=== PATIENT | female | born 1975 | race Caucasian/White ===

== ENCOUNTER → 2019-05-20 12:42 | Outpatient (BNVA) | payer OTHER, SELFPAY | PROVIDERS: Family Provider Nurse Practitioner Family; PCP Family Medicine; Visit Provider Psychiatry & Neurology Psychiatry | DX: G47.419 Narcolepsy without cataplexy (principal); F34.0 Cyclothymic disorder; S06.9X9S Unspecified intracranial injury with loss of consciousness of unspecified duration, sequela; G31.84 Mild cognitive impairment of uncertain or unknown etiology | CPT/HCPCS: 99213 ==

== ENCOUNTER → 2019-07-28 07:32 | Outpatient (BNVA) | payer OTHER, SELFPAY | PROVIDERS: Family Provider Nurse Practitioner Family; PCP Family Medicine; Visit Provider Psychiatry & Neurology Psychiatry | DX: F34.0 Cyclothymic disorder (principal); G47.419 Narcolepsy without cataplexy; S06.9X9S Unspecified intracranial injury with loss of consciousness of unspecified duration, sequela; G31.84 Mild cognitive impairment of uncertain or unknown etiology | CPT/HCPCS: 99212 ==

== ENCOUNTER → 2019-09-01 07:28 | Outpatient (BNVA) | payer OTHER, SELFPAY | PROVIDERS: Family Provider Nurse Practitioner Family; PCP Family Medicine; Visit Provider Psychiatry & Neurology Psychiatry | DX: F34.0 Cyclothymic disorder (principal); G47.419 Narcolepsy without cataplexy; S06.9X9S Unspecified intracranial injury with loss of consciousness of unspecified duration, sequela; G31.84 Mild cognitive impairment of uncertain or unknown etiology; F32.9 Major depressive disorder, single episode, unspecified | CPT/HCPCS: 99213 ==

== ENCOUNTER → 2019-10-27 09:36 | Outpatient (BNVA) | payer OTHER, SELFPAY | PROVIDERS: Family Provider Nurse Practitioner Family; PCP Family Medicine; Visit Provider Psychiatry & Neurology Psychiatry | DX: G47.419 Narcolepsy without cataplexy (principal); F34.0 Cyclothymic disorder; S06.9X9S Unspecified intracranial injury with loss of consciousness of unspecified duration, sequela; G31.84 Mild cognitive impairment of uncertain or unknown etiology | CPT/HCPCS: 99213 ==

== ENCOUNTER → 2020-01-12 07:51 | Outpatient (BNVA) | payer OTHER, SELFPAY | PROVIDERS: Family Provider Nurse Practitioner Family; PCP Family Medicine; Visit Provider Psychiatry & Neurology Psychiatry | DX: F34.0 Cyclothymic disorder (principal); G47.419 Narcolepsy without cataplexy; S06.9X9S Unspecified intracranial injury with loss of consciousness of unspecified duration, sequela; G31.84 Mild cognitive impairment of uncertain or unknown etiology | CPT/HCPCS: 99213 ==

== ENCOUNTER → 2020-03-21 07:31 | Outpatient (BNVA) | payer OTHER, SELFPAY | PROVIDERS: Family Provider Nurse Practitioner Family; PCP Family Medicine; Visit Provider Psychiatry & Neurology Psychiatry | DX: F34.0 Cyclothymic disorder (principal); Z79.899 Other long term (current) drug therapy; G47.419 Narcolepsy without cataplexy; S06.9X9S Unspecified intracranial injury with loss of consciousness of unspecified duration, sequela; G31.84 Mild cognitive impairment of uncertain or unknown etiology | CPT/HCPCS: 99213 ==

== ENCOUNTER → 2020-06-28 14:05 | Outpatient (BNVA) | payer OTHER, SELFPAY | PROVIDERS: Family Provider Nurse Practitioner Family; PCP Family Medicine; Visit Provider Psychiatry & Neurology Psychiatry | DX: F34.0 Cyclothymic disorder (principal); G31.84 Mild cognitive impairment of uncertain or unknown etiology; G47.419 Narcolepsy without cataplexy; Z79.899 Other long term (current) drug therapy; S06.9X9S Unspecified intracranial injury with loss of consciousness of unspecified duration, sequela | CPT/HCPCS: 84295; 99214 ==

== ENCOUNTER → 2020-07-17 10:31 | Outpatient (BNVA) | payer OTHER, SELFPAY | PROVIDERS: Family Provider Nurse Practitioner Family; PCP Family Medicine; Visit Provider Nurse Practitioner Family | DX: R07.9 Chest pain, unspecified (principal); R53.83 Other fatigue | CPT/HCPCS: 80053; 80061; 82306; 82607; 83735; 84443; 85025 ==

== ENCOUNTER → 2020-08-30 07:44 | Outpatient (BNVA) | payer OTHER, SELFPAY | PROVIDERS: Family Provider Nurse Practitioner Family; PCP Family Medicine; Visit Provider Psychiatry & Neurology Psychiatry | DX: F34.0 Cyclothymic disorder (principal); S06.9X9S Unspecified intracranial injury with loss of consciousness of unspecified duration, sequela; G31.84 Mild cognitive impairment of uncertain or unknown etiology; G47.419 Narcolepsy without cataplexy; G47.33 Obstructive sleep apnea (adult) (pediatric); R53.83 Other fatigue | CPT/HCPCS: 99214 ==

== ENCOUNTER → 2020-11-22 07:17 | Outpatient (BNVA) | payer OTHER, SELFPAY | PROVIDERS: PCP Nurse Practitioner Family; Visit Provider Psychiatry & Neurology Psychiatry | DX: F34.0 Cyclothymic disorder (principal); G47.419 Narcolepsy without cataplexy; S06.9X9S Unspecified intracranial injury with loss of consciousness of unspecified duration, sequela; G31.84 Mild cognitive impairment of uncertain or unknown etiology; G47.33 Obstructive sleep apnea (adult) (pediatric) | CPT/HCPCS: 99214 ==

== ENCOUNTER → 2021-02-21 08:11 | Outpatient (BNVA) | payer OTHER, SELFPAY | PROVIDERS: PCP Nurse Practitioner Family; Visit Provider Psychiatry & Neurology Psychiatry | DX: F34.0 Cyclothymic disorder (principal); G47.419 Narcolepsy without cataplexy; S06.9X9S Unspecified intracranial injury with loss of consciousness of unspecified duration, sequela; G31.84 Mild cognitive impairment of uncertain or unknown etiology; G47.33 Obstructive sleep apnea (adult) (pediatric) | CPT/HCPCS: 99213 ==

== ENCOUNTER → 2021-04-03 15:58 | Outpatient (BNVA) | payer OTHER, SELFPAY | PROVIDERS: PCP Nurse Practitioner Family; Visit Provider Nurse Practitioner Family | DX: I10 Essential (primary) hypertension (principal); E78.5 Hyperlipidemia, unspecified | CPT/HCPCS: 80053; 80061; 84443; 85025 ==

== ENCOUNTER → 2021-05-09 14:26 | Outpatient (BNVA) | payer OTHER, SELFPAY | PROVIDERS: PCP Nurse Practitioner Family; Visit Provider Psychiatry & Neurology Psychiatry | DX: F34.0 Cyclothymic disorder (principal); G31.84 Mild cognitive impairment of uncertain or unknown etiology; G47.419 Narcolepsy without cataplexy; G47.33 Obstructive sleep apnea (adult) (pediatric); S06.9X9S Unspecified intracranial injury with loss of consciousness of unspecified duration, sequela | CPT/HCPCS: 99214 ==

== ENCOUNTER → 2021-08-09 07:06 | Outpatient (BNVA) | payer OTHER, SELFPAY | PROVIDERS: PCP Nurse Practitioner Family; Visit Provider Psychiatry & Neurology Psychiatry | DX: F34.0 Cyclothymic disorder (principal); G47.419 Narcolepsy without cataplexy; S06.9X9S Unspecified intracranial injury with loss of consciousness of unspecified duration, sequela; G31.84 Mild cognitive impairment of uncertain or unknown etiology; G47.33 Obstructive sleep apnea (adult) (pediatric) | CPT/HCPCS: 99214 ==

== ENCOUNTER → 2024-12-21 15:00 | Outpatient (BNVA) | payer OTHER, SELFPAY | PROVIDERS: PCP Nurse Practitioner Family; Visit Provider Nurse Practitioner Family | DX: I10 Essential (primary) hypertension (principal); R53.83 Other fatigue; R59.1 Generalized enlarged lymph nodes; E78.5 Hyperlipidemia, unspecified | CPT/HCPCS: 80053; 80061; 84443; 85025; 85651; 86140 ==

== ENCOUNTER 2025-02-03 09:47 | Outpatient (CLI) | payer OTHER, SELFPAY ==
--- NOTE | 2025-02-03 09:55 | US_ITS ---
WS: [id number] ULTRASOUND SOFT TISSUES cervical chains. HISTORY: R59.1 - Generalized enlarged lymph nodes COMPARISON: None available. TECHNIQUE: 2-D and color Doppler imaging is submitted. Ultrasound is performed along the cervical chains. There are a few lymph nodes identified. These lymph nodes are normal size with normal fatty hilum. No pathologically enlarged lymph nodes. US/US soft tissue head neck [id number] IMPRESSION: No pathologically enlarged cervical chain lymph nodes identified by ultrasound. Clinically if there is continued concern for lymph node enlargement consider n mckenzie CT with IV contrast.
== END 2025-02-03 09:48 | disposition home or self-care (01) ==
LOC: RAD 09:49
PROVIDERS: PCP Nurse Practitioner Family; Visit Provider Nurse Practitioner Family
DX: R59.1 Generalized enlarged lymph nodes (principal)
CPT/HCPCS: 76536

== ENCOUNTER → 2025-02-16 10:57 | Outpatient (BNVA) | payer OTHER, SELFPAY | PROVIDERS: PCP Nurse Practitioner Family; Visit Provider Nurse Practitioner Family | DX: R59.1 Generalized enlarged lymph nodes (principal); R73.9 Hyperglycemia, unspecified; R10.9 Unspecified abdominal pain | CPT/HCPCS: 80053; 83036; 83690; 85025; 85651; 86140 ==

== ENCOUNTER 2025-02-23 12:04 | Outpatient (CLI) | payer OTHER, SELFPAY ==
--- NOTE | 2025-02-23 12:30 | CT_ITS ---
WS: [id number] CT NECK TECHNIQUE: Contrast-enhanced CT of the neck with coronal and sagittal reformatted images. CLINICAL INFORMATION: R22.1 - Localized swelling, mass and lump, neck COMPARISON: None. DLP: 146.[address] scans at [facility] use at least one of these dose optimization techniques: automated exposure control; mA and/or kV adjustment per patient size (includes targeted exams where dose is matched to clinical indication); or iterative reconstruction. FINDINGS: Submandibular glands are normal. Parotid glands are normal. No suspicious abnormalities deep to the palpable markers. Normal-appearing submandibular glands in the areas of concern. 11 mm LEFT jugulodigastric lymph node. Otherwise no cervical lymphadenopathy. Tongue base not well evaluated due to dental artifact. Asymmetric soft tissue irregularity involving the soft palate extending into the posterior nasopharynx. Recommend direct visualization. Paranasal sinuses and mastoid air cells are well aerated. Normal epiglottis. Normal piriform sinuses. No evidence of glottic or subglottic mass. Normal thyroid. Lung apices well aerated. CT/CT neck w con* [id number] IMPRESSION: 1. . Tongue base poorly evaluated due to beam hardening artifact. Soft tissue thickening and irregularity involving the soft palate projecting into the poste rior nasopharynx. Recommend direct visualization. 2. Normal parotid glands and submandibular glands. 3. No abnormalities deep to the palpable markers. 4. Prominent 11 mm LEFT jugulodigastric lymph node. Otherwise no cervical lymp hadenopathy.
[2025-02-23] MEDS: iohexol 350 mg/mL 500 mL Btl (per mL) IV (12:39)
== END 2025-02-23 12:05 | disposition home or self-care (01) ==
PROVIDERS: PCP Nurse Practitioner Family; Visit Provider Nurse Practitioner Family
DX: Z12.4 Encounter for screening for malignant neoplasm of cervix (principal); R59.0 Localized enlarged lymph nodes
CPT/HCPCS: 70491; 87624

== ENCOUNTER 2025-03-01 09:38 | Outpatient (CLI) | payer OTHER, SELFPAY ==
--- NOTE | 2025-03-01 10:15 | MM_ITS ---
WS: [id number] DIAGNOSTIC BILATERAL DIGITAL BREAST TOMOSYNTHESIS MAMMOGRAPHY WITH CAD RIGHT breast ultrasound, limited HISTORY: Palpable mass RIGHT breast at 10:00. COMPARISON: 09/22/2012 TECHNIQUE: Bilateral craniocaudad, mediolateral oblique, and mediolateral views are submitted with tomosynthesis and SM. Spot compression RIGHT CC. Computer aided detection utilized. Breast composition: The breasts are extremely dense, which lowers the sensitivity of mammography. Prior marker placed along the RIGHT breast at 10:00 at a middle depth. There is no underlying abnormality identified. Dense fibroglandular tissue is similar to the prior mammogram. Benign scattered calcifications are coarse in each breast. No distortion within either breast. RIGHT breast ultrasound, limited. RIGHT breast at 10:00, 3 cm from the nipple is a hypoechoic mass with minimal posterior shadowing measuring 0.3 x 0.4 x 0.4 cm. Mass is slightly taller than it is wide. Partially echogenic border. No increased vascularity is identified. No corresponding finding seen on mammography. No additional abnormalities. MM/MM diag tomosynthesis [id number] IMPRESSION: BI-RADS: 4 - Suspicious Finding - Biopsy Should Be Considered FOLLOW UP: Biopsy Recommended Ultrasound-guided biopsy recommended of the hypoechoic mass RIGHT breast at 10: 00, 3 cm from the nipple.
--- NOTE | 2025-03-01 10:45 | US_ITS ---
WS: [id number] DIAGNOSTIC BILATERAL DIGITAL BREAST TOMOSYNTHESIS MAMMOGRAPHY WITH CAD RIGHT breast ultrasound, limited HISTORY: Palpable mass RIGHT breast at 10:00. COMPARISON: 09/22/2012 TECHNIQUE: Bilateral craniocaudad, mediolateral oblique, and mediolateral views are submitted with tomosynthesis and SM. Spot compression RIGHT CC. Computer aided detection utilized. Breast composition: The breasts are extremely dense, which lowers the sensitivity of mammography. Prior marker placed along the RIGHT breast at 10:00 at a middle depth. There is no underlying abnormality identified. Dense fibroglandular tissue is similar to the prior mammogram. Benign scattered calcifications are coarse in each breast. No distortion within either breast. RIGHT breast ultrasound, limited. RIGHT breast at 10:00, 3 cm from the nipple is a hypoechoic mass with minimal posterior shadowing measuring 0.3 x 0.4 x 0.4 cm. Mass is slightly taller than it is wide. Partially echogenic border. No increased vascularity is identified. No corresponding finding seen on mammography. No additional abnormalities. US/US breast RT limited* [id number] IMPRESSION: BI-RADS: 4 - Suspicious Finding - Biopsy Should Be Considered FOLLOW UP: Biopsy Recommended Ultrasound-guided biopsy recommended of the hypoechoic mass RIGHT breast at 10: 00, 3 cm from the nipple.
[2025-03-02 12:39] LABS: COMPLEMENT COMPONENT C3C 127 mg/dL (83-193); COMPLEMENT COMPONENT C4C 13 mg/dL (15-57)
[2025-03-02 14:49] LABS: COMPLEMENT, TOTAL (CH50) 52 U/mL (31-60)
[2025-03-03 04:39] LABS: CENTROMERE B ANTIBODY <1.0 NEG AI (<1.0 NEG); JO-1 ANTIBODY <1.0 NEG AI (<1.0 NEG); RNP ANTIBODY <1.0 NEG AI (<1.0 NEG); SCL-70 ANTIBODY <1.0 NEG AI (<1.0 NEG); SS-B <1.0 NEG AI (<1.0 NEG)
[2025-03-03 21:49] LABS: THYROID PEROXIDASE ANTIBODIES 1 IU/mL (<9)
[2025-03-06 02:01] LABS: DNA AB (DS) CRITHIDIA,IFA NEGATIVE (NEGATIVE)
== END 2025-03-01 09:39 | disposition home or self-care (01) ==
PROVIDERS: PCP Nurse Practitioner Family; Visit Provider Nurse Practitioner Family
DX: N63.10 Unspecified lump in the right breast, unspecified quadrant (principal); N63.20 Unspecified lump in the left breast, unspecified quadrant; R70.0 Elevated erythrocyte sedimentation rate; R93.89 Abnormal findings on diagnostic imaging of other specified body structures; R92.343 Mammographic extreme density, bilateral breasts; R92.1 Mammographic calcification found on diagnostic imaging of breast; R92.323 Mammographic fibroglandular density, bilateral breasts; N63.11 Unspecified lump in the right breast, upper outer quadrant
CPT/HCPCS: 76642; 77062; 85651; 86160; 86162; 86200; 86235; 86255; 86376; 86431; G0279